=== PATIENT | male | born 1960 | race Caucasian/White ===

== ENCOUNTER → 2017-02-27 | Day surgery (SDC) | payer OTHER ==
[~2017-02-27] VITALS: Ht 177.8 cm; Wt 104.3 kg
[~2017-02-27] MED LIST: ALBU17IN INH; ATOR1TAB21 PO; BREO1INH INH; BUPIVACAINE/EPIN 0.25% 30 ML VIAL As Ordered ONE; GLYCOPYRROLATE INJ 0.2 MG/ML 2 ML VIAL As Ordered ONE; KETOROLAC 60 MG/2 ML VIAL (J1885) As Ordered ONE; LIDOCAINE 2% INJ 100 MG/5 ML SDV (FOR ANES.) As Ordered ONE; LORA10CA PO; LR 1,000 ML IV ONE; LR 1,000 ML IV SCH; MIDAZOLAM INJ 2 MG/2 ML VIAL (J2250) As Ordered ONE; MORPHINE 2 MG/ML 1ML SYRINGE IV PRN; NEOSTIGMINE 1MG/ML 5 ML SYRINGE (J2710) As Ordered ONE; NORCO, ANEXSIA 5/325MG TABLET (HYDROcodone/ACETAMINOPHEN) PO PRN; ONDANSETRON 4MG/2ML VIAL (J2405) As Ordered ONE; ONDANSETRON 4MG/2ML VIAL (J2405) IV PRN; PERCOCET 5MG/325MG TAB PO PRN; PROPOFOL 200 MG/20 ML VIAL As Ordered ONE; ROCURONIUM BROMIDE 50 MG/5 ML VIAL/SYRINGE As Ordered ONE; SING10TA32 PO; VITA100067 PO; ceFAZolin 1GM INJ (J0690) As Ordered ONE; ceFAZolin SOD 1 GM in D5W MINI-BAG PLUS 50 ML IV ONE; dexameTHASONE 4 MG/ML 1ML VIAL (J1100) As Ordered ONE; fentaNYL 100 MCG/2 ML INJECTION (J3010) As Ordered ONE; fentaNYL 100 MCG/2 ML INJECTION (J3010) IV PRN
[2017-02-27 14:18] VITALS: BP 130/72
--- NOTE | 2017-03-02 08:35 | RO ---
DATE OF PROCEDURE: 02/27/2017 PREOPERATIVE DIAGNOSIS: Left inguinal hernia. POSTOPERATIVE DIAGNOSIS: Left inguinal hernia (indirect and direct). PROCEDURE: Laparoscopic left inguinal hernia repair with 3DMax mesh (TEPP). SURGEON: Dr. Abdifatah King UNDER SHERIFF: ANESTHESIA: General endotracheal anesthesia. ESTIMATED BLOOD LOSS: Minimal. FLUIDS: Crystalloid. BRIEF PROCEDURE SUMMARY: The patient was brought to the operating room and was given general anesthesia. After adequate anesthesia and preoperative antibiotics were given. the patient was prepped and draped in the usual sterile fashion. Next, a periumbilical incision was made with skin knife. Blunt dissection was carried down to fascia. Fascia was grasped with Iveth clamps and a longitudinal incision was made along the anterior border of the rectus muscle and the rectus muscle was retracted laterally and anteriorly. The posterior sheath was followed inferiorly to the umbilicus with finger dissection and then the balloon dissector was placed in the preperitoneal space and insufflated under direct visualization. The balloon dissector was removed under direct visualization and the stationary balloon was placed in the preperitoneal space and insufflated to 15 mm of pressure. Two 5 mm trocars were placed in the infraumbilical site under direct visualization and then the left inguinal area was dissected out in the following manner. First, loose areolar tissue covering up the posterior aspect of the pubic area and pubis and the Pa's ligament bilaterally was taken down with hook cautery. This continued laterally up to where there was a direct inguinal hernia that was mobilized bluntly and then some loose attachments were taken down with hook cautery. Eventually, the valley between the bladder and the vessels was created using some minimal blunt dissection as well as the hook cautery on the loose areolar tissue. This continued up towards the cord structures itself and the internal ring area. First, dissection was continued lateral to the internal ring, working our self medially to the cord structures where the hernia was appreciated. The peritoneum was grasped. It was mobilized off surrounding structures and was eventually taken off the cord structures and mobilized off the cord structures such that the peritoneum was mobilized down to the level of the area where the vas dove deep into the pelvis as well as laterally as well. A good open area lateral to the internal ring was formed and then a 3DMax mesh large was placed in the preperitoneal space, tacked in at pubis, Pa's and on the tail of mesh as well. There was some minimal redundancy to the mesh itself and thus the preperitoneal space was desufflated under direct visualization revealing the appropriate placement of the peritoneum/hernia sac. Then all trocars were removed under direct visualization. #0 Vicryl was used to close the fascia at the umbilicus and all incisions were closed with #4-0 Vicryl. Steri-Strips and a dry sterile dressing was applied. The patient was awakened, extubated and brought to the recovery room awake, alert and hemodynamically stable. Sponge and needle counts were correct times two.
== END | disposition home or self-care (01) ==
LOC: M SDC 05:52
PROVIDERS: ATTEND Surgery
DX: K40.90 Unilateral inguinal hernia, without obstruction or gangrene, not specified as recurrent (principal); E78.1 Pure hyperglyceridemia; J44.9 Chronic obstructive pulmonary disease, unspecified; J45.50 Severe persistent asthma, uncomplicated; J30.9 Allergic rhinitis, unspecified; Z79.899 Other long term (current) drug therapy; Z87.891 Personal history of nicotine dependence; Z86.79 Personal history of other diseases of the circulatory system
CPT/HCPCS: 49650; C1781

== ENCOUNTER → 2021-01-04 | Outpatient (CLI) | payer BC, OTHER, SELFPAY ==
[~2021-01-04] MED LIST changes: -BUPIVACAINE/EPIN 0.25% 30 ML VIAL As Ordered ONE; -GLYCOPYRROLATE INJ 0.2 MG/ML 2 ML VIAL As Ordered ONE; -KETOROLAC 60 MG/2 ML VIAL (J1885) As Ordered ONE; -LIDOCAINE 2% INJ 100 MG/5 ML SDV (FOR ANES.) As Ordered ONE; -LR 1,000 ML IV ONE; -LR 1,000 ML IV SCH; -MIDAZOLAM INJ 2 MG/2 ML VIAL (J2250) As Ordered ONE; -MORPHINE 2 MG/ML 1ML SYRINGE IV PRN; -NEOSTIGMINE 1MG/ML 5 ML SYRINGE (J2710) As Ordered ONE; -NORCO, ANEXSIA 5/325MG TABLET (HYDROcodone/ACETAMINOPHEN) PO PRN; -ONDANSETRON 4MG/2ML VIAL (J2405) As Ordered ONE; -ONDANSETRON 4MG/2ML VIAL (J2405) IV PRN; -PERCOCET 5MG/325MG TAB PO PRN; -PROPOFOL 200 MG/20 ML VIAL As Ordered ONE; -ROCURONIUM BROMIDE 50 MG/5 ML VIAL/SYRINGE As Ordered ONE; -ceFAZolin 1GM INJ (J0690) As Ordered ONE; -ceFAZolin SOD 1 GM in D5W MINI-BAG PLUS 50 ML IV ONE; -dexameTHASONE 4 MG/ML 1ML VIAL (J1100) As Ordered ONE; -fentaNYL 100 MCG/2 ML INJECTION (J3010) As Ordered ONE; -fentaNYL 100 MCG/2 ML INJECTION (J3010) IV PRN
== END ==
LOC: M LABSMTC 09:33
PROVIDERS: ATTEND Family Medicine
DX: Z11.52 Encounter for screening for COVID-19 (principal)
CPT/HCPCS: C9803; U0003